=== PATIENT | male | born 1945 | race Caucasian/White ===

== ENCOUNTER 2017-08-02 13:13 | Emergency (ER) | payer MEDICARE ==
[~2017-08-02 13:13] MED LIST: Iopamidol 370 76% 100 ML VIAL ONE
[2017-08-02] MEDS ORDERED: Morphine 4 MG/ML Carpuject ONE (13:32)
[2017-08-02] MEDS ORDERED: Ondansetron HCl/PF 4 MG/2 ML Vial ONE (13:32)
[2017-08-02 14:10] LABS: #Basophils 0.1 thou/uL (0.0-0.2); #Lymphocytes 1.8 thou/uL (1.20-3.40); #Monocytes 0.7 thou/uL (0.11-0.59); #Neutrophils 7.9 thou/uL (1.40-6.50); %Basophils 0.8 % (0.0-1.0); %Eosinophils 0.3 % (0.0-10.0); %Lymphocytes 17.4 % (21.0-51.0); %Monocytes 6.4 % (0.0-10.0); %Neutrophils 75.1 % (42.0-75.0); Hemoglobin 14.8 g/dL (14.0-18.0); Mean Corpuscular HGB CONC 36.1 g/dL (32.0-36.0); Mean Corpuscular Hemoglobin 34.8 pg (27.0-31.0); Mean Corpuscular Volume 96.3 fl (80.0-94.0); Mean Platelet Volume 6.7 fL (7.4-10.4); PLT Morphology Comment Appears Adequate; Platelet Count 211 thou/uL (130-400); RBC Distribution Width 11.4 % (11.5-14.5); Red Blood Cell (RBC) Count 4.26 mill/uL (4.70-6.10); White Blood Cell (WBC) Count 10.5 thou/uL (4.8-10.8)
[2017-08-02 14:15] LABS: ALT (SGPT) 22 U/L (8-55); AST (SGOT) 27 U/L (5-34); Albumin 4.3 g/dL (3.4-4.8); Alkaline Phosphatase 78 U/L (40-150); Anion Gap 16 mmol/L (10-20); BUN (Urea Nitrogen) 16 mg/dL (8.4-25.7); Bilirubin, Total 0.6 mg/dL (0.2-1.2); Calc. Creatinine Clearance 0 mL/min (70-130); Calcium 9.3 mg/dL (7.8-10.44); Carbon Dioxide 24 mmol/L (23-31); Chloride 107 mmol/L (98-107); Estimated GFR-MDRD 70; Globulin 3.2 g/dL (2.4-3.5); Glucose 125 mg/dL (80-115); Lipase 11 U/L (8-78); Protein, Total 7.5 g/dL (5.8-8.1); Sodium 143 mmol/L (136-145)
--- NOTE | 2017-08-02 14:42 | RAD ---
RIGHT SHOULDER THREE VIEWS: History: Shoulder injury. FINDINGS: There is AC separation. The clavicle has an abnormal superior position. No fracture. Humeral head yancy ears normally positioned. IMPRESSION: Evidence of AC separation. POS: [facility]
--- NOTE | 2017-08-02 15:35 | CT ---
CT CHEST WITH CONTRAST CT ABDOMEN AND PELVIS WITH CONTRAST CT THORACIC SPINE WITH CONTRAST CT LUMBAR SPINE WITH CONTRAST: Clinical history: Post-traumatic injury related to fall from ladder. FINDINGS: Minimal nonspecific patchy density is seen at the posterior right lung. No pneumothorax or effusion. Thoracoabdominal aorta is atraumatic in appearance. No obvious post-traumatic acute injury of the katina id abdominal viscera. There is a cyst at the left kidney and a nonobstructing calculus in the right k idney. Stomach is distended by ingestive debris. No pneumoperitoneum. Noninflamed fat containing ash umbilical hernia is present. There is diffuse atherosclerotic disease, predominately noncalcified sharon que. Urinary bladder is unopacified and grossly unremarkable. Chronic L2 compression fracture is pres ent. There is extensive degenerative change of the imaged spine. No ascites visualized. IMPRESSION: 1. No definite acute process. 2. Additional details as described above. POS: [facility]
== END 2017-08-02 15:19 | disposition home or self-care (01) ==
LOC: SCSER 13:13
DX: S43.101A Unspecified dislocation of right acromioclavicular joint, initial encounter (principal); S20.211A Contusion of right front wall of thorax, initial encounter; W17.89XA Other fall from one level to another, initial encounter
CPT/HCPCS: 71260; 74177; 80053; 83690; 85025; 96374; 96375; J2270; J2405